=== PATIENT | male | born 1995 | race Caucasian/White ===

== ENCOUNTER 2018-05-05 23:13 | Emergency (ER) | payer OTHER ==
[2018-05-06] MEDS: DIPHTH/TET/ACEL PERTUSS (ADULT) 0.5 ML VIAL IM* (02:56)
== END 2018-05-06 03:05 | disposition home or self-care (01) ==
LOC: FTE 23:13
DX: S61.431A Puncture wound without foreign body of right hand, initial encounter (principal); F17.210 Nicotine dependence, cigarettes, uncomplicated; W54.0XXA Bitten by dog, initial encounter; Y92.9 Unspecified place or not applicable; Z23 Encounter for immunization
CPT/HCPCS: 90471; 90715; 99283-25

== ENCOUNTER 2018-12-26 20:24 | Emergency (ER) | payer SELFPAY, OTHER | END 2018-12-27 | disposition left against medical advice (07) | LOC: FTE 20:24 | DX: Z53.21 Procedure and treatment not carried out due to patient leaving prior to being seen by health care provider (principal) ==